=== PATIENT | female | born 1990 | race Caucasian/White ===

== ENCOUNTER 2018-03-25 18:52 | Emergency (ER) | payer BC ==
[~2018-03-25] VITALS: Ht 162.6 cm; Wt 72.6 kg
[~2018-03-25 18:52] MED LIST: FENUGREEK500 MG PO; FLAGYL500 MG PO; HYDROCODONE-AP1 EAC6 PO; ONDANSETRON HCL4 M2 PO; SERTRALINE HCL50 MG PO; TRINATE TABLET1 TAB PO; VALACYCLOVIR500 MG PO; ZANTAC 150MG T150 MG PO
[2018-03-25] MEDS ORDERED: XANAX 0.5 MG0.5 MG (19:21)
[2018-03-25] MEDS ORDERED: CYMBALTA30 MG (19:21)
[2018-03-25] MEDS ORDERED: HYDROXYZINE HCL25 M1 (19:21)
[2018-03-25] MEDS ORDERED: ACETAMINOPHEN-1 EAC1 PO (20:25)
[2018-03-25] MEDS ORDERED: ROBAXIN 750 MG750 M1 PO (20:25)
[2018-03-25 20:38] VITALS: BP 127/68
== END 2018-03-25 20:40 | disposition home or self-care (01) ==
LOC: M.ERS 18:52
DX: M94.0 Chondrocostal junction syndrome [Tietze] (principal); F32.9 Major depressive disorder, single episode, unspecified; F41.9 Anxiety disorder, unspecified; Z88.0 Allergy status to penicillin; Z88.1 Allergy status to other antibiotic agents; Z98.890 Other specified postprocedural states